=== PATIENT | female | born 1940 | race Caucasian/White ===

== ENCOUNTER 2016-08-14 10:26 | Day surgery (SDC) | payer MEDICARE, OTHER ==
[~2016-08-14] VITALS: Ht 162.6 cm; Wt 75.0 kg
[~2016-08-14 10:26] MED LIST: ALBU8.5H2 INHALATION; ASPI-973 PO; ATRV10T PO; BENZ200C44 PO; LATA2.5D6 OP; LOSA50TA37 PO; Lactated Ringer's 1,000 ML IV ONE; MELA5TAB14 PO; OMEP20TA86 PO; PROP10DR4 OP; TRAZ-115 PO
[2016-08-14] MEDS ORDERED: Propofol 10 mg/mL 20 mL Inj ONE (10:27)
[2016-08-14 10:58] VITALS: BP 151/72; PULSE 76; RESP 17; O2SAT 92
[2016-08-14] MEDS ORDERED: Albuterol 2.5 mg/3 mL Inhalation Solution NEB ONE (11:54)
[2016-08-14 12:02] VITALS: BP 137/65; PULSE 77; RESP 18; O2SAT 97
[2016-08-14 12:15] VITALS: BP 126/69; PULSE 77; RESP 17; O2SAT 100
[2016-08-14 12:23] VITALS: BP 148/67; PULSE 78; RESP 16; O2SAT 100
--- NOTE | 2016-08-14 12:26 | ENDO ---
[address] [address] ENDOSCOPY PROCEDURE PATIENT: FAM BAUTISTA : 1940 MR#: [id number] ADMIT: 08/14/2016 JOB ID: [id number] DATE OF SERVICE: 08/14/2016 PROCEDURE PERFORMED: Esophagogastroduodenoscopy. INDICATION: Gastroesophageal reflux and abnormal barium study which showed thickened distal esophagus. The patient today has no complaints of gastroesophageal reflux or dysphagia. She states her gastroesophageal reflux improved after she was started on a PPI daily. She has no other alarm symptoms that suggest hematemesis or weight loss. ASA CLASSIFICATION, MALLAMPATI SCORE AND MEDICATIONS: Please see anesthesia note for details regarding ASA classification, Mallampati score and medications. INSTRUMENT USED: [id number]. PROCEDURE DETAILS: After informed consent was obtained, the patient was brought into the GI suite, where she was placed on oxygen via nasal cannula and monitored with continuous pulse oximeter, telemetry, and blood pressure monitoring. A time-out was performed. Then, she was placed in the left lateral decubitus position, and medications were administered for sedation. A bite block was placed. A standard EGD scope was inserted through the bite block and advanced under direct visualization to the second portion of the duodenum without difficulty. FINDINGS: 1. Normal appearing duodenal bulb, first and second portions. 2. Normal appearing pylorus, antrum and gastric body. 3. Retroflexed views in the gastric body revealed a small hiatal hernia. Otherwise, normal appearing cardia and fundus. 4. The top of the gastric folds were at 36 cm. The GE junction, which was regular, was at 34 cm. Multiple biopsies were obtained at 35 cm. IMPRESSIONS: 1. Small hiatal hernia. 2. Otherwise, normal examination to second portion of the duodenum. RECOMMENDATIONS: 1. Await biopsy results. 2. Continue PPI daily. 3. Reflux precautions. COMPLICATIONS: None. ESTIMATED BLOOD LOSS: Less than 5 mL.
--- NOTE | 2016-08-14 12:50 | PCM.HPANE ---
Patient Data Surgeon Admitting Provider: Attending Provider:Raymond Rodriguez MD Primary Care Physician:Darline Troncoso MD Other Provider:Rei Malone Anesthesia Reason for Visit GERD Ht/WT & BMI Body Mass Index Allergies Coded Allergies: cephalexin (Verified Allergy, Unknown, 08/14/16) erythromycin base (Verified Allergy, Unknown, 08/14/16) Past Anesthesia History Anesthesia History: Denies:: Abnormal Airway, Anesthesia Reactions, Difficult Intubation, Fam Anesthesia Reaction, Fam Malignant Hypertherm, Malignant Hyperthermia Diabetes History Hx Diabetes?: No MRSA MRSA: No Medications Blood Thinner: Aspirin Reported Medications Trazodone 50 Mg Uverqy96 Mg PO HS Ref 0 08/13/16 Albuterol HFA (Proair HFA)8.5 Gm Hfa.aer.ad2 Puffs INHALATION Q4H #1 INHALER 08/13/16 Omeprazole 20 Mg Tablet.dr20 Mg PO DAILY 08/13/16 Losartan Potassium 50 Mg Clavws55 Mg PO 08/13/16 Atorvastatin (Lipitor)10 Mg Tab10 Mg PO DAILY Ref 0 08/13/16 Aspirin 81 Mg Mluwkn40 Mg PO DAILY Ref 0 03/14/15 Latanoprost 2.5 Ml Drops1 Gtt OP HS 03/16/14 Melatonin 5 Mg Tablet5 Mg PO HS 03/16/14 Propylene Glycol (Systane Balance)10 Ml Drops10 Ml OP AM 03/16/14 Discontinued Reported Medications Benzonatate 200 Mg [id number] Mg PO 08/13/16 [Cataplex D] No Conflict Check1 Tab PO DAILY 03/16/14 [Glucosamine Synergy] No Conflict Check2 Tab PO AM 03/16/14 [Catalyn Vitamin] No Conflict Check3 Tab PO DAILY 03/16/14 [Calcium Lactate] No Conflict Check3 Tab PO DAILY 03/16/14 History History of ENT Problems?: No HEENT History: Denies:: Abnormal Airway Difficult Intubation Dysphagia Hearing Problem Denture Type: None Teeth Condition: Within Normal Limits Hx of Heart Problems?: No Cardiovascular History: Denies:: AICD Atrial Fibrillation Chest Pain Hypertension Pacemaker Valvular Heart Disease Hx of Respiratory Problem?: No Respiratory History: Denies:: Asthma COPD Cough Hemoptysis Pneumonia Tuberculosis Hx Neurologic Problems?: No Neurological History: Denies:: CVA Hx of GI Problems?: Yes Hx of Problems?: No Female Hx: Denies:: Currently Hx Musculoskeletal Problems?: No Musculoskeletal History: Denies:: Joint Replacement Psycho Social History: Denies:: Anxiety Hx Depression Hx Surgeries?: Yes (LEFT LUNG LOBECTOMY, WRIST, LYMPHNODES, LAMINECTOMY, VOCAL CHORD ) Hx Any Other Health Problems?: Yes Hx Diabetes: No Hx Alcohol Use: No Smoking Status: Never Smoker Stop/Bang Risk Assessment Category Category 1A: Patient has history of documented sleep apnea, and HAS NOT received any narcotic, sedative or anesthesia administration during this stay. Category 1B: Patient has history of documented sleep apnea, and HAS received any narcotic , sedative or anesthesia administration during this stay Category 2: Patient has SUSPECTED Obstructive Sleep Apnea, and HAS received any narcotic , sedative or anesthesia administration during this stay. Category 3: Patient has SUSPECTED Obstructive Sleep Apnea and HAS NOT received narcotic, sedative or anesthesia administration during this stay. Category 4: Outpatient in Procedural Areas with known sleep apnea or who screen positive for High Risk via the STOP/BANG questionnaire. Exam Exam General Appearance: Alert, Oriented X3, Cooperative, No Acute Distress HEENT/AIRWAY: MP 2 Lungs: Clear to Auscultation Heart: Exam Unremarkable Plan Impression Patient chart reviewed, patient interviewed and anesthestic plan with risks, benefits, and alternatives discussed, and informed consent obtained. ASA Physical Status: ASA2 Mod Systemic Disease Anesthetic Plan: MAC Bene/Risks/Altern/Consents: Yes HP Complete Prior to Induction: Yes Apolinar Toussaint MD Aug 14, 2016 09:30
--- NOTE | 2016-08-18 11:39 | PATH ---
SURGICAL PATHOLOGY Attending Physician:Angela Canales CASE STATUS: Signed Out PATIENT NAME: FAM BAUTISTA PID: [id number] : 1940 DATE COLLECTED:08/14/2016 22:10 SPECIMEN: Esophagus, Biopsy CLINICAL HISTORY: 1). DISTAL ESOPHAGUS BIOPSY FINAL DIAGNOSIS: 1.DISTAL ESOPHAGUS BIOPSY: COLUMNAR MUCOSA WITH NO PATHOLOGIC ALTERATIONS. Negative for intestinal/Tellez' s metaplasia. Negative for dysplasia and malignancy. Eosinophils are not increased. ICD10 R13.10 GROSS DESCRIPTION: Received in formalin, labeled with the patient's name and "distal esophagus" are multiple fragments of hollis soft tissue ranging in size from 0.1 x 0.1 x 0.1 cm to 0.3 x 0.2 x 0.1 cm. All fragments are totally submitted in cassette ([id number]) MICRO DESCRIPTION: See diagnosis. ICD-9 CODES: CPT CODES: 1: 80029 Electronically Signed Out Delilah Lima MD [facility] [address], [place] [address] Technical component performed at [facility], [facility] [address], [address]
== END 2016-08-14 23:59 | disposition home or self-care (01) ==
LOC: END 10:26
PROVIDERS: ATTEND Internal Medicine Gastroenterology
DX: K44.9 Diaphragmatic hernia without obstruction or gangrene (principal); R13.10 Dysphagia, unspecified; K21.9 Gastro-esophageal reflux disease without esophagitis; I10 Essential (primary) hypertension; E78.5 Hyperlipidemia, unspecified; F41.9 Anxiety disorder, unspecified; G47.33 Obstructive sleep apnea (adult) (pediatric); G25.81 Restless legs syndrome; Z85.118 Personal history of other malignant neoplasm of bronchus and lung; Z85.71 Personal history of Hodgkin lymphoma; Z79.82 Long term (current) use of aspirin
CPT/HCPCS: 43239; J7120; J7613